=== PATIENT | female | born 1985 | race Caucasian/White ===

== ENCOUNTER 2024-05-27 23:19 | Emergency (ER) | payer MEDICAID, SELFPAY ==
[2024-05-27 23:20] VITALS: BMI 39.0
[2024-05-27 23:53] VITALS: BP 117/87; PULSE 134; RESP 18; TEMP 37.9; O2SAT 95
[2024-05-28] MEDS: ALBUTEROL/IPRATROPIUM (Duoneb) RT SOL 3 ML NEBU 6 ML INH (00:15)
[2024-05-28] MEDS: ACETAMINOPHEN 500 MG TABLET 1000 MG PO (00:15)
[2024-05-28] MEDS: OSELTAMIVIR 75 MG CAPSULE PO (00:16)
[2024-05-28] MEDS: DEXAMETHASONE SOD PHOS INJ 10 MG/ML VIAL PO (00:17)
[2024-05-28] MEDS: ONDANSETRON ODT 4 MG TABRAP PO (00:17)
[2024-05-28 00:21] VITALS: PULSE 138; RESP 20; O2SAT 98
--- NOTE | 2024-05-28 00:22 | PD.EDURI ---
Upper Respiratory Inf. RME/HPI General Chief Complaint: Flu Like Symptoms Stated Complaint: FLU LIKE SYMPTOMS X 3 DAYS Time Seen by Provider: 05/28/24 00:03 Arrival date/time: 05/27/24 23:19 38F with history of asthma presents to ED with cough for 3 days. Patient's daughter tested positive for Flu A. Limitations: no limitations Related Data Home Medications ?Medication ?Instructions ?Recorded ?Confirmed Fluticasone/Salmeterol DISKUS * 1 puff inhalation BID #0 puffs 09/06/13 07/07/19 (ADVAIR DISKUS 250/50 *) montelukast 10 mg tablet 10 mg PO HS #0 tabs 09/06/13 07/07/19 (Singulair) loratadine 10 mg tablet 10 mg PO QDAY 07/07/19 07/07/19 mometasone 50 mcg/actuation nasal 2 spray intranasal QDAY 07/07/19 07/07/19 spray (Nasonex) Previous Rx's ?Medication ?Instructions ?Recorded albuterol sulfate 90 mcg/actuation 2 puff inhalation Q6H #18 grams 03/20/18 aerosol inhaler ibuprofen 600 mg tablet 600 mg PO QID PRN fever or pain 04/20/19 #30 tabs azithromycin 250 mg tablet See Rx Instructions PO .COMPLEX #6 07/07/19 tabs methylprednisolone 4 mg tablets in 4 mg PO .as directed #21 tabs 07/07/19 a dose pack (Medrol (Stoney)) ondansetron 4 mg disintegrating 4 mg PO Q8H PRN nausea and 07/07/19 tablet vomiting #14 tabs ondansetron 4 mg disintegrating 4 mg PO Q8H PRN nausea and 05/28/24 tablet vomiting #14 tabs oseltamivir 75 mg capsule (Tamiflu) 75 mg PO BID 5 days #10 caps 05/28/24 prednisone 50 mg tablet 50 mg PO QDAY 7 days #7 tabs 05/28/24 Allergies Allergy/AdvReac Type Severity Reaction Status Date / Time codeine Allergy Intermediate Vomiting Verified 05/27/24 23:22 hydrocodone bit Allergy Intermediate Vomiting Verified 05/27/24 23:22 latex Allergy Intermediate Rash Verified 05/27/24 23:22 levofloxacin Allergy Intermediate Anaphylaxis Verified 05/27/24 23:22 Quinolones Allergy Intermediate Anaphylaxis Verified 05/27/24 23:22 Sulfa (Sulfonamide Allergy Intermediate Vomiting Verified 05/27/24 23:22 Antibiotics) Review of Systems Review of Systems Systems Reviewed: All systems reviewed, normal except as documented Constitutional Constitutional: Reports system reviewed and no additional complaints, except as documented, Denies fever(s) and Denies headache(s) ENT Ears, Nose, Mouth, and Throat: Denies disequilibrium and Denies headache(s) Cardiovascular Cardiovascular: Reports system reviewed and no additional complaints, except as documented, Denies chest pain and Denies dyspnea Respiratory Respiratory: Reports system reviewed and no additional complaints, except as documented, Reports as per HPI, Reports cough and Denies dyspnea Gastrointestinal Gastrointestinal: Reports system reviewed and no additional complaints, except as documented, Denies abdominal pain, Denies nausea and Denies vomiting Neurologic Neurologic: Reports system reviewed and no additional complaints, except as documented, Denies confusion, Denies disequilibrium and Denies headache(s) Psychiatric Psychiatric: Denies confusion Past Medical History Past Medical History CARDIAC: Negative Congestive Heart Failure RESPIRATORY: Positive Chronic Obstructive Pulmonary Disease (COPD) and Asthma GENITOURINARY: Negative Renal Disease ENDOCRINE: Negative Diabetes Mellitus Type 1 or Diabetes Mellitus Type 2 Surgical History SURGICAL: Positive Section Social History SMOKING STATUS: Never smoker ED Exam General Limitations: Present no limitations General appearance: Present alert and in no apparent distress Head Head exam: Present atraumatic Eye Eye exam: Present normal appearance, PERRL and EOMI ENT ENT exam: Present normal exam, normal oropharynx and mucous membranes moist Neck Neck exam: Present normal inspection, full ROM and trachea midline Chest Chest inspection: Present normal inspection and symmetric chest wall rise Respiratory Respiratory exam: Present wheezes (L) Cardiovascular Cardiovascular exam: Present regular rate, normal rhythm and normal heart sounds Abdominal Exam Abdominal exam: Present soft and normal bowel sounds Extremities Exam Extremities exam: Present normal inspection and full ROM Back Exam Back exam: Present normal inspection and full ROM Neurological Exam Neurological exam: Present alert, oriented X3 and CN II-XII intact Psychiatric Psychiatric exam: Present normal affect and normal mood Skin Skin exam: Present warm, dry, intact and normal color Course Quality Measures none Orders Category Date Time Status Acetaminophen Tab [Tylenol ES Tab] Med 05/28/24 00:05 Discontinued 1,000 mg PO X1 ONE Albuterol/Ipratr Rt Odette [Duoneb Rt Odette] Med 05/28/24 00:05 Discontinued 6 ml INH X1 ONE Dexamethasone Inj [Decadron Inj] Med 05/28/24 00:05 Discontinued 10 mg PO X1 ONE Ondansetron Odt [Zofran Odt] Med 05/28/24 00:09 Discontinued 4 mg PO X1 ONE Oseltamivir [Tamiflu] Med 05/28/24 00:05 Discontinued 75 mg PO X1 ONE Vital Signs Vital signs: Vital Signs Temperature 100.2 F 05/27/24 23:53 Pulse Rate 134 H 05/27/24 23:53 Respiratory Rate 18 05/27/24 23:53 Blood Pressure 117/87 H 05/27/24 23:53 Pulse Oximetry (%) 95 05/27/24 23:53 Oxygen Delivery Method Room Air 05/27/24 23:53 O2 at 95% on RA and WNLs Upper Respiratory Infection MDM Narrative MDM Narrative:: 38F with history of asthma presents to ED with cough for 3 days. Patient's daughter tested positive for Flu A. Physical exam reveals some wheezing in L Lung. Patient is afebrile, calm, and alert. Likely influenza with asthma exacerbation. Meds relieved wheezing. Will treat with Tamiflu. Patient data External records reviewed:: [facility] previous records Clinical information provided by:: patient Social determinants that could affect healthcare access:: none Patient has the following chronic illnesses:: asthma How is presenting disease/condition affected by chronic disease/condition?: exacerbated by Evaluation data The following diagnostics were reviewed and interpreted by me:: other (specify) (none) Lab and/or radiology exams considered but not ordered:: not ordered Interpretation Summary: n/a Medications / Prescriptions Medications or Prescriptions considered but not ordered:: ordered Medication administrations:: Medication Administration History Discontinued Medications Acetaminophen (Acetaminophen 500 Mg Tablet) 1,000 mg PO X1 ONE Stop: 05/28/24 00:06 Last Admin: 05/28/24 00:15 Dose: 1,000 mg Documented By: IRVING Albuterol/Ipratropium (Albuterol/Ipratropium (Duoneb) Rt Odette 3 Ml Nebu) 6 ml INH X1 ONE Stop: 05/28/24 00:06 Last Admin: 05/28/24 00:15 Dose: 6 ml Documented By: DEMETRICE Dexamethasone Sodium Phosphate (Dexamethasone Sod Phos Inj 10 Mg/Ml Vial) 10 mg PO X1 ONE Stop: 05/28/24 00:06 Last Admin: 05/28/24 00:17 Dose: 10 mg Documented By: IRVING Ondansetron HCl (Ondansetron Odt 4 Mg Tabrap) 4 mg PO X1 ONE; Protocol Stop: 05/28/24 00:10 Last Admin: 05/28/24 00:17 Dose: 4 mg Documented By: IRVING Oseltamivir Phosphate (Oseltamivir 75 Mg Capsule) 75 mg PO X1 ONE Stop: 05/28/24 00:06 Last Admin: 05/28/24 00:16 Dose: 75 mg Documented By: IRVING above Consultations Consultation(s) initiated? (list below): No Diagnosis Upper Respiratory Differential Diagnosis: upper respiratory infection, croup, otitis media, sinusitis, viral infection, bronchitis, influenza, pharyngitis and other (asthma exacerbation) Most likely diagnosis given after review of the tests above:: asthma exacerbation and influenza Admission Indicated Admission indicated?: not indicated Admission Request Was there a request for admission?: No Disposition Plan Disposition Plan: Discharge Discharge Attestation Discharge Attestation: The patient and all family members were given an opportunity to ask questions and understood the discharge instructions. Discharge instructions specifically effects, indications for sooner follow up or return to the emergency department, and the expected course of current diagnosis. Patient condition: Stable Discharge Plan Plan Patient Disposition: HOME (Self Care) Disposition Comment: Stable Prescriptions/Referrals Prescriptions/Med Rec: New prednisone 50 mg tablet 50 mg PO QDAY 7 Days Qty: 7 0RF oseltamivir [Tamiflu] 75 mg capsule 75 mg PO BID 5 Days Qty: 10 0RF ondansetron 4 mg tablet,disintegrating 4 mg PO Q8H PRN (Reason: nausea and vomiting) Qty: 14 0RF No Action albuterol sulfate 90 mcg/actuation HFA aerosol inhaler 2 puff INH Q6H Qty: 18 0RF montelukast [Singulair] 10 MG tablet 10 mg PO HS Qty: 0 Fluticasone/Salmeterol DISKUS * (ADVAIR DISKUS 250/50 *) 1 DISK/DEV DISK.W.DEV 1 puff Inhalation BID Qty: 0 mometasone [Nasonex] 50 mcg/actuation [place],Non-Aerosol 2 spray INTRANASAL QDAY loratadine 10 mg Tablet 10 mg PO QDAY azithromycin 250 mg tablet See Rx Instructions .ROUTE .COMPLEX Qty: 6 0RF Rx Instructions: take 500 mg today (day 1), then 250 mg for 4 days (days 2-5) ondansetron 4 mg tablet,disintegrating 4 mg PO Q8H PRN (Reason: nausea and vomiting) Qty: 14 0RF methylprednisolone [Medrol (Stoney)] 4 mg tablets,dose pack 4 mg PO .as directed Qty: 21 0RF ibuprofen 600 mg tablet 600 mg PO QID PRN (Reason: fever or pain) Qty: 30 0RF Referrals: Ernst Rodriguez PA-C [Primary Care Provider] - In 1 week Problem List Clinical Impression: Influenza, Asthma exacerbation Patient/Caregiver Discharge Instructions Additional Instructions: Please follow-up with PCP within 24-48 hours and return immediately if symptoms worsen. Print Language: Libyan Stand Alone Forms: Patient Portal Info Letter KLAUS/JER Supervising Physician KLAUS/JER Supervising Physician: Dr. Daniel
[2024-05-28 01:51] VITALS: BP 107/68; PULSE 130; RESP 19; TEMP 37.3; O2SAT 94
== END 2024-05-28 02:01 | disposition home or self-care (01) ==
PROVIDERS: Emergency Provider Emergency Medicine; PCP Physician Assistant
DX: J45.901 Unspecified asthma with (acute) exacerbation (principal); J11.1 Influenza due to unidentified influenza virus with other respiratory manifestations; J44.89 Other specified chronic obstructive pulmonary disease
CPT/HCPCS: 94640; 99283; A9270; J1100; Q0162

== ENCOUNTER 2024-10-08 00:15 | Emergency (ER) | payer MEDICAID, SELFPAY ==
[2024-10-08] VITALS (9 sets, daily range): BP systolic 118–185; BP diastolic 79–97; PULSE 105–145; RESP 18–24; TEMP 36.4–37; O2SAT 94–99; BMI 35.5
--- NOTE | 2024-10-08 00:46 | PD.ASTHM ---
ED Asthma RME/HPI General Chief Complaint: Asthma Stated Complaint: DIFFICULTY BREATHING Time Seen by Provider: 10/08/24 00:41 Arrival date/time: 10/08/24 00:15 39F with history of asthma presents to ED with 2 days of cough and SOB. Patient is on prednisone 10 mg daily. Patient took 25 mg for the past 2 days w/o relief. Limitations: no limitations Related Data Home Medications ?Medication ?Instructions ?Recorded ?Confirmed Fluticasone/Salmeterol DISKUS * 1 puff inhalation BID #0 puffs 09/06/13 07/07/19 (ADVAIR DISKUS 250/50 *) montelukast 10 mg tablet 10 mg PO HS #0 tabs 09/06/13 07/07/19 (Singulair) loratadine 10 mg tablet 10 mg PO QDAY 07/07/19 07/07/19 mometasone 50 mcg/actuation nasal 2 spray intranasal QDAY 07/07/19 07/07/19 spray (Nasonex) Previous Rx's ?Medication ?Instructions ?Recorded albuterol sulfate 90 mcg/actuation 2 puff inhalation Q6H #18 grams 03/20/18 aerosol inhaler ibuprofen 600 mg tablet 600 mg PO QID PRN fever or pain 04/20/19 #30 tabs azithromycin 250 mg tablet See Rx Instructions PO .COMPLEX #6 07/07/19 tabs methylprednisolone 4 mg tablets in 4 mg PO .as directed #21 tabs 07/07/19 a dose pack (Medrol (Stoney)) ondansetron 4 mg disintegrating 4 mg PO Q8H PRN nausea and 07/07/19 tablet vomiting #14 tabs ondansetron 4 mg disintegrating 4 mg PO Q8H PRN nausea and 05/28/24 tablet vomiting #14 tabs albuterol sulfate 90 mcg/actuation 2 inh inhalation Q6H PRN shortness 10/08/24 breath activated powder inhaler of breath or wheezing #1 ea azithromycin 500 mg tablet 500 mg PO QDAY 3 days #3 tabs 10/08/24 (Zithromax TRI-STONEY) prednisone 20 mg tablet 20 mg PO BID 4 days #8 tabs 10/08/24 Allergies Allergy/AdvReac Type Severity Reaction Status Date / Time codeine Allergy Intermediate Vomiting Verified 05/27/24 23:22 hydrocodone bit Allergy Intermediate Vomiting Verified 05/27/24 23:22 latex Allergy Intermediate Rash Verified 05/27/24 23:22 levofloxacin Allergy Intermediate Anaphylaxis Verified 05/27/24 23:22 Quinolones Allergy Intermediate Anaphylaxis Verified 05/27/24 23:22 Sulfa (Sulfonamide Allergy Intermediate Vomiting Verified 05/27/24 23:22 Antibiotics) Review of Systems Review of Systems Systems Reviewed: All systems reviewed, normal except as documented Constitutional Constitutional: Reports system reviewed and no additional complaints, except as documented, Denies fever(s) and Denies headache(s) ENT Ears, Nose, Mouth, and Throat: Denies disequilibrium and Denies headache(s) Cardiovascular Cardiovascular: Reports system reviewed and no additional complaints, except as documented, Denies chest pain and Reports dyspnea Respiratory Respiratory: Reports system reviewed and no additional complaints, except as documented, Reports as per HPI, Reports cough and Reports dyspnea Gastrointestinal Gastrointestinal: Reports system reviewed and no additional complaints, except as documented, Denies abdominal pain, Denies nausea and Denies vomiting Neurologic Neurologic: Reports system reviewed and no additional complaints, except as documented, Denies confusion, Denies disequilibrium and Denies headache(s) Psychiatric Psychiatric: Denies confusion Past Medical History Past Medical History CARDIAC: Negative Congestive Heart Failure RESPIRATORY: Positive Chronic Obstructive Pulmonary Disease (COPD) and Asthma GENITOURINARY: Negative Renal Disease ENDOCRINE: Negative Diabetes Mellitus Type 1 or Diabetes Mellitus Type 2 Surgical History SURGICAL: Positive Section Social History SMOKING STATUS: Never smoker ED Exam General Limitations: Present no limitations General appearance: Present alert and in no apparent distress Head Head exam: Present atraumatic Eye Eye exam: Present normal appearance, PERRL and EOMI ENT ENT exam: Present normal exam, normal oropharynx and mucous membranes moist Neck Neck exam: Present normal inspection, full ROM and trachea midline Chest Chest inspection: Present normal inspection and symmetric chest wall rise Respiratory Respiratory exam: Present wheezes Cardiovascular Cardiovascular exam: Present regular rate, normal rhythm and normal heart sounds Abdominal Exam Abdominal exam: Present soft and normal bowel sounds Extremities Exam Extremities exam: Present normal inspection and full ROM Back Exam Back exam: Present normal inspection and full ROM Neurological Exam Neurological exam: Present alert, oriented X3 and CN II-XII intact Psychiatric Psychiatric exam: Present normal affect and normal mood Skin Skin exam: Present warm, dry, intact and normal color Course Quality Measures none Orders Category Date Time Status Budesonide Rt [Pulmicort Rt Odette] Med 10/08/24 00:41 Discontinued 0.5 mg INH X1 ONE Dexamethasone Inj [Decadron Inj] Med 10/08/24 00:41 Discontinued 10 mg PO X1 ONE Ipratropium [place] Rt Odette [Atrovent Rt Odette] Med 10/08/24 00:41 Discontinued 1 mg INH X1 ONE Levalbuterol Rt [Xopenex Rt Odette] Med 10/08/24 00:41 Discontinued 5 mg INH X1 ONE Sodium Chloride Rt Odette 0.9% [NS Rt Odette 0.9%] Med 10/08/24 00:41 Active 3 ml INH PRN PRN Vital Signs Vital signs: Vital Signs Temperature 97.7 F 10/08/24 00:26 Pulse Rate 105 H 10/08/24 00:26 Respiratory Rate 24 H 10/08/24 00:26 Blood Pressure 144/88 H 10/08/24 00:26 Pulse Oximetry (%) 98 10/08/24 00:26 Oxygen Delivery Method Room Air 10/08/24 00:26 Asthma MDM Narrative MDM Narrative:: 39F with history of asthma presents to ED with 2 days of cough and SOB. Patient is on prednisone 10 mg daily. Patient took 25 mg for the past 2 days w/o relief. Physical exam reveals wheezing in lungs. Patient is afebrile, calm, and alert. Only mild improvement after 2 1 hr breathing tx and max steroids. Still has wheezing, but O2 remains >95% on RA. Care signed out to colleague pending mag and diagnostics. Patient was ultimately discharged. Patient data External records reviewed:: [facility] previous records Clinical information provided by:: patient Social determinants that could affect healthcare access:: none Patient has the following chronic illnesses:: asthma How is presenting disease/condition affected by chronic disease/condition?: exacerbated by Evaluation data The following diagnostics were reviewed and interpreted by me:: radiology exam(s) Lab and/or radiology exams considered but not ordered:: ordered Interpretation Summary: above Medications / Prescriptions Medications or Prescriptions considered but not ordered:: ordered Medication administrations:: Medication Administration History Sodium Chloride (Sodium Chloride Rt Odette 0.9% 3 Ml Nebu) 3 ml INH PRN PRN PRN Reason: SOLN Stop: 11/07/24 00:40 Discontinued Medications Budesonide (Budesonide Rt 0.5 Mg/2 Ml Nebu) 0.5 mg INH X1 ONE Stop: 10/08/24 00:42 Dexamethasone Sodium Phosphate (Dexamethasone Sod Phos Inj 10 Mg/Ml Vial) 10 mg PO X1 ONE Stop: 10/08/24 00:42 Ipratropium [place] (Ipratropium Rt 0.5 Mg/ 2.5 Ml Nebu) 1 mg INH X1 ONE Stop: 10/08/24 00:42 Levalbuterol HCl (Levalbuterol Rt 1.25 Mg/0.5 Ml Nebu) 5 mg INH X1 ONE Stop: 10/08/24 00:42 Consultations Consultation(s) initiated? (list below): No Diagnosis Differential diagnosis asthma: Acute exacerbation, Status asthmaticus, Acute asthmatic bronchitis, PE, Pneumonia, COPD exacerbation, Pulmonary edema systolic, Pulmonary edema dystolic, ARDS, Pneumothorax and Foreign body in trachea Most likely diagnosis given after review of the tests above:: status asthmaticus Admission Indicated Admission indicated?: not indicated Admission Request Was there a request for admission?: No Disposition Plan Disposition Plan: Discharge Discharge Attestation Discharge Attestation: The patient and all family members were given an opportunity to ask questions and understood the discharge instructions. Discharge instructions specifically effects, indications for sooner follow up or return to the emergency department, and the expected course of current diagnosis. Patient condition: Stable Discharge Plan Plan Patient Disposition: HOME (Self Care) Prescriptions/Referrals Prescriptions/Med Rec: New albuterol sulfate 90 mcg/actuation aerosol powdr breath activated 2 inh inhalation Q6H PRN (Reason: shortness of breath or wheezing) Qty: 1 0RF azithromycin [Zithromax TRI-STONEY] 500 mg tablet 500 mg PO QDAY 3 Days Qty: 3 0RF Rx Instructions: 500 mg orally; prednisone 20 mg tablet 20 mg PO BID 4 Days Qty: 8 0RF Taper: Prednisone Taper 20 mg DAILY for 2 Days and 0 Hour 10 mg DAILY for 2 Days and 0 Hour 5 mg DAILY for 7 Days and 0 Hour No Action albuterol sulfate 90 mcg/actuation HFA aerosol inhaler 2 puff INH Q6H Qty: 18 0RF montelukast [Singulair] 10 MG tablet 10 mg PO HS Qty: 0 Fluticasone/Salmeterol DISKUS * (ADVAIR DISKUS 250/50 *) 1 DISK/DEV DISK.W.DEV 1 puff Inhalation BID Qty: 0 mometasone [Nasonex] 50 mcg/actuation [place],Non-Aerosol 2 spray INTRANASAL QDAY loratadine 10 mg Tablet 10 mg PO QDAY azithromycin 250 mg tablet See Rx Instructions .ROUTE .COMPLEX Qty: 6 0RF Rx Instructions: take 500 mg today (day 1), then 250 mg for 4 days (days 2-5) ondansetron 4 mg tablet,disintegrating 4 mg PO Q8H PRN (Reason: nausea and vomiting) Qty: 14 0RF methylprednisolone [Medrol (Stoney)] 4 mg tablets,dose pack 4 mg PO .as directed Qty: 21 0RF ibuprofen 600 mg tablet 600 mg PO QID PRN (Reason: fever or pain) Qty: 30 0RF ondansetron 4 mg tablet,disintegrating 4 mg PO Q8H PRN (Reason: nausea and vomiting) Qty: 14 0RF Referrals: Ernst Rodriguez PA-C [Primary Care Provider] - In 1 week Problem List Clinical Impression: Asthma with status asthmaticus Patient/Caregiver Discharge Instructions Print Language: Ugandan Stand Alone Forms: Nery Award Info., Patient Portal Info Letter
--- NOTE | 2024-10-08 00:47 | XR_ITS ---
Examination: PA chest single view TECHNIQUE: Upright PA chest single view Exam date and time: October 08, 2024 0106 hours Indications coughing beginning 2 days ago. FINDINGS: Bibasilar bronchitis versus early bronchopneumonia Normal heart size Mild osteopenia IMPRESSION: Bibasilar bronchitis versus early bronchopneumonia, clinical correlation advised
[2024-10-08] MEDS: DEXAMETHASONE SOD PHOS INJ 10 MG/ML VIAL PO (00:52)
[2024-10-08] MEDS: LEVALBUTEROL RT 1.25 MG/0.5 ML NEBU 5 MG INH ×2 (00:55→04:08)
[2024-10-08] MEDS: IPRATROPIUM RT 0.5 MG/ 2.5 ML NEBU 1 MG INH (00:55)
[2024-10-08] MEDS: BUDESONIDE RT 0.5 MG/2 ML NEBU INH ×2 (00:56→04:08)
[2024-10-08] MEDS: IPRATROPIUM RT 0.5 MG/ 2.5 ML NEBU INH (04:08)
[2024-10-08] MEDS: SODIUM CHLORIDE RT SOL 0.9% 3 ML NEBU INH (04:08)
[2024-10-08] MEDS: predniSONE 20 MG TABLET 40 MG PO (04:17)
[2024-10-08] MEDS: Magnesium Sulfate 2 GM Ivpb 2 GM/50 ML BAG IV (05:37)
[2024-10-08 05:49] LABS: Lactate (Lactic Acid) 2.8 mMol/L (0.4-2.0)
[2024-10-08 05:53] LABS: Basophils # (Auto) 0.1 Thou/mm3 (0.0-0.2); Basophils % (Auto) 1 % (0-2.5); Eosinophils % (Auto) 0 % (0-10); Hematocrit 39.1 % (36.0-46.0); Hemoglobin 13.6 g/dL (12.0-16.0); Immature Granulocytes % (Auto) 0 % (0-0); Immature Granulocytes Auto 0.03 Thou/mm3 (0.00-0.00); Lymphocytes # (Auto) 0.8 Thou/mm3 (1.0-4.8); Lymphocytes % (Auto) 7 % (10-50); Mean Corpuscular HGB Conc 34.8 g/dl (31.0-37.0); Mean Corpuscular Hemoglobin 29.9 pg (25.0-35.0); Mean Corpuscular Volume 86 fL (80-100); Monocytes # (Auto) 0.9 Thou/mm3 (0.0-0.8); Monocytes % (Auto) 8 % (0-12); Neutrophils % (Auto) 83 % (37-80); Nucleated Red Blood Cell % 0 /100 WBC (0); Platelet Count 222 Thou/mm3 (140-440); RDW Standard Deviation 39.2 fL (36.4-46.3); Red Blood Count 4.55 Miln/mm3 (4.00-5.20); White Blood Count 10.8 Thou/mm3 (3.6-11.0)
--- NOTE | 2024-10-08 06:28 | XR_ITS ---
Examination: CTA chest with intravenous contrast 2-D reconstructions 3-D reconstructions, vascular Date and time of exam: October 08, 2024 0844 hours INDICATIONS: Shortness of breath chest pain onset today CTDI: vol (mGy) 32 DLP: (mGycm) 438 Technique: Multiple axial sections of the thorax have been obtained. 3 mm slice thickness, from below the hemidiaphragms to above the apices of the lungs. Mediastinal and lung density settings have been obtained. 2-D sagittal and coronal reconstructions. 3-D angiographic renderings, 3-D volume renderings, 3D post processing, vascular maximum intensity projections obtained. Contrast administered is 100 cc Isovue-370. Low dose protocols were performed. One or more of the following dose reduction techniques were used; automated exposure control, adjustment of the mA and/or KV according to patient size, use of iterative reconstruction technique. Findings: No thoracic aortic aneurysm dilatation No pulmonary artery filling defects Mild vascular congestion. No lobar pneumonia or pulmonary edema No visualized liver splenic lesion No gallstones no pancreatic mass IMPRESSION: Negative for pulmonary artery emboli No pneumonia or pulmonary edema or pleural disease
[2024-10-08 06:40] LABS: Alanine Aminotransferase 26 U/L (10-49); Albumin, Serum 4.4 gm/dL (3.5-5.0); Albumin/Globulin Ratio 1.8 (1.2-2.2); Alkaline Phosphatase 91 U/L (46-116); Anion Gap 13 (7-16); Aspartate Amino Transferase 17 U/L (0-34); BUN/Creatinine Ratio 20 Ratio (12-20); Bilirubin,Total 0.2 mg/dL (0.3-1.2); Blood Urea Nitrogen 20 mg/dL (9-23); Calcium 8.5 mg/dL (8.3-10.6); Calcium (Corrected) 8.5 mg/dL (8.5-10.1); Carbon Dioxide 20.7 mMol/L (20.0-31.0); Chloride 106 mMol/L (98-107); Estimated Creatinine Clearance 89.1 mL/min (>60); Globulin 2.5 gm/dL (2.3-3.5); Glucose 163 mg/dL (74-106); Osmolality,Calculated 286 (275-295); Potassium 3.4 mMol/L (3.4-5.1); Procalcitonin 0.05 ng/ml (0.0-0.49); Sodium 140 mMol/L (136-145); Total Protein 6.9 gm/dL (5.7-8.2); eGFR > 60 See Note
--- NOTE | 2024-10-08 06:53 | PC.NURSE ---
per md no sepsis orders at this time
--- NOTE | 2024-10-08 07:45 | PC.NURSE ---
Patient resting comfortably in bed, at bedside. POC updated. Patient denies SOB at this time.
[2024-10-08 08:19] LABS: HCG Qualitative,Urine Negative
--- NOTE | 2024-10-08 08:22 | PD.ASTHM ---
ED Asthma RME/HPI General Chief Complaint: Asthma Stated Complaint: DIFFICULTY BREATHING Time Seen by Provider: 10/08/24 00:41 Arrival date/time: 10/08/24 00:15 Limitations: no limitations RME / HPI RME / HPI Narrative: 39 year old female with a history of asthma, currently managed with Prednisone 10 mg daily, Advair 500/50, Singulair, and a nasal spray, presents to the ED with shortness of breath and cough. She reports the symptoms are similar to prior asthma exacerbations. She ran out of her rescue inhaler two days ago and has been unable to manage symptoms at home. She denies fever, chills, night sweats, chest pain, or other associated symptoms. She is followed by the [facility] and her PCP, KLAUS Rodriguez. Related Data Home Medications ?Medication ?Instructions ?Recorded ?Confirmed Fluticasone/Salmeterol DISKUS * 1 puff inhalation BID #0 puffs 09/06/13 07/07/19 (ADVAIR DISKUS 250/50 *) montelukast 10 mg tablet 10 mg PO HS #0 tabs 09/06/13 07/07/19 (Singulair) loratadine 10 mg tablet 10 mg PO QDAY 07/07/19 07/07/19 mometasone 50 mcg/actuation nasal 2 spray intranasal QDAY 07/07/19 07/07/19 spray (Nasonex) Previous Rx's ?Medication ?Instructions ?Recorded albuterol sulfate 90 mcg/actuation 2 puff inhalation Q6H #18 grams 03/20/18 aerosol inhaler ibuprofen 600 mg tablet 600 mg PO QID PRN fever or pain 04/20/19 #30 tabs azithromycin 250 mg tablet See Rx Instructions PO .COMPLEX #6 07/07/19 tabs methylprednisolone 4 mg tablets in 4 mg PO .as directed #21 tabs 07/07/19 a dose pack (Medrol (Stoney)) ondansetron 4 mg disintegrating 4 mg PO Q8H PRN nausea and 07/07/19 tablet vomiting #14 tabs ondansetron 4 mg disintegrating 4 mg PO Q8H PRN nausea and 05/28/24 tablet vomiting #14 tabs albuterol sulfate 90 mcg/actuation 2 inh inhalation Q6H PRN shortness 10/08/24 breath activated powder inhaler of breath or wheezing #1 ea azithromycin 500 mg tablet 500 mg PO QDAY 3 days #3 tabs 10/08/24 (Zithromax TRI-STONEY) prednisone 20 mg tablet 20 mg PO BID 4 days #8 tabs 10/08/24 Allergies Allergy/AdvReac Type Severity Reaction Status Date / Time codeine Allergy Intermediate Vomiting Verified 05/27/24 23:22 hydrocodone bit Allergy Intermediate Vomiting Verified 05/27/24 23:22 latex Allergy Intermediate Rash Verified 05/27/24 23:22 levofloxacin Allergy Intermediate Anaphylaxis Verified 05/27/24 23:22 Quinolones Allergy Intermediate Anaphylaxis Verified 05/27/24 23:22 Sulfa (Sulfonamide Allergy Intermediate Vomiting Verified 05/27/24 23:22 Antibiotics) Review of Systems Review of Systems Narrative Review of Systems: GEN: No fever, no chills, no weight loss EYES: No discharge, no visual changes, no pain HEENT: No ear pain, no congestion, no sore throat PULM: +shortness of breath, +cough CV: No chest pain, no palpitations GI: No nausea, no vomiting, no diarrhea, no pain, no constipation : No frequency, no urgency, no dysuria MUSC/SKEL: No joint pain, no back pain SKIN: No rash NEURO: No weakness, no headache Past Medical History Past Medical History CARDIAC: Negative Cardiac Disorders or Congestive Heart Failure RESPIRATORY: Positive Asthma; Negative Chronic Obstructive Pulmonary Disease (COPD) GENITOURINARY: Negative Renal Disease ENDOCRINE: Negative Diabetes Mellitus Type 1 or Diabetes Mellitus Type 2 HEMATOLOGIC: Negative Sickle Cell Disease Surgical History SURGICAL: Positive Section Social History SMOKING STATUS: Never smoker ED Exam General Limitations: Present no limitations General appearance: Present alert Head Head exam: Present atraumatic Eye Eye exam: Present normal appearance, PERRL and EOMI ENT ENT exam: Present normal exam, normal oropharynx and mucous membranes moist Neck Neck exam: Present normal inspection, full ROM and trachea midline Chest Chest inspection: Present normal inspection and symmetric chest wall rise Respiratory Respiratory exam: Present other (Poor air movement, expiratory and inspiratory wheezing. ) Cardiovascular Cardiovascular exam: Present regular rate, normal rhythm and normal heart sounds Abdominal Exam Abdominal exam: Present soft and normal bowel sounds Extremities Exam Extremities exam: Present normal inspection and full ROM Back Exam Back exam: Present normal inspection and full ROM Neurological Exam Neurological exam: Present alert, oriented X3 and CN II-XII intact Psychiatric Psychiatric exam: Present normal affect and normal mood Skin Skin exam: Present warm, dry, intact and normal color Course Course Course Narrative: chest xray ordered to help determine etiology of shortness of breath. Quality Measures Current suspected stage: sepsis Possible source: pulmonary Blood cultures ordered: completed in ED Antibiotic ordered: Yes Pertinent labs: 10/08/24 05:41 Lactic Acid 2.8 H mMol/L (0.4-2.0) Procalcitonin 0.05 ng/ml (0.0-0.49) sepsis Orders Category Date Time Status CT Screening NOW Care 10/08/24 06:28 Active Insert IV NOW Care 10/08/24 05:[address] angio chest Stat Exams 10/08/24 06:28 Ordered XR chest 1V portable Stat Exams 10/08/24 00:47 Taken CBC Stat Lab 10/08/24 05:41 Completed CMP [Comprehensive Metabolic Panel] Stat Lab 10/08/24 05:41 Completed HCG Qualitative,Urine Stat Lab 10/08/24 07:42 Completed Lactate (Lactic Acid) Stat Lab 10/08/24 05:41 Results Procalcitonin Stat Lab 10/08/24 05:41 Completed Azithromycin Inj [Zithromax Inj] 500 mg Med 10/08/24 07:46 Active Sodium Chloride 0.9% 250 ml [Ns] 250 ml IV X1 Budesonide Rt [Pulmicort Rt Odette] Med 10/08/24 00:41 Discontinued 0.5 mg INH X1 ONE Budesonide Rt [Pulmicort Rt [place]] Med 10/08/24 03:56 Discontinued 0.5 mg INH X1 ONE Dexamethasone Inj [Decadron Inj] Med 10/08/24 00:41 Discontinued 10 mg PO X1 ONE Ipratropium [place] Rt Odette [Atrovent Rt Odette] Med 10/08/24 03:56 Discontinued 0.5 mg INH X1 ONE Ipratropium [place] Rt [place]ette [Atrovent Rt Odette] Med 10/08/24 00:41 Discontinued 1 mg INH X1 ONE Levalbuterol Rt [Xopenex Rt [place]] Med 10/08/24 00:41 Discontinued 5 mg INH X1 ONE Levalbuterol Rt [Xopenex Rt [place]] Med 10/08/24 03:56 Discontinued 5 mg INH X1 ONE Magnesium Sulfate 2 GM Ivpb [Magnesium Sulfate Ivpb] Med 10/08/24 05:14 Discontinued 2 gm in 50 ml IV X1 Sodium Chloride Rt [place] 0.9% [NS Rt [place]ette 0.9%] Med 10/08/24 00:41 Discontinued 3 ml INH PRN PRN Sodium Chloride Rt [place] 0.9% [NS Rt [place] 0.9%] Med 10/08/24 03:56 Active 3 ml INH PRN PRN predniSONE Med 10/08/24 05:00 Discontinued 40 mg PO X1 ONE Vital Signs Vital signs: Vital Signs Temperature 97.7 F 10/08/24 00:26 Pulse Rate 105 H 10/08/24 00:26 Respiratory Rate 24 H 10/08/24 00:26 Blood Pressure 144/88 H 10/08/24 00:26 Pulse Oximetry (%) 98 10/08/24 00:26 Oxygen Delivery Method Room Air 10/08/24 00:26 Asthma MDM Narrative MDM Narrative:: Nuria Lawrence am scribing for and in the presence of Dr. Figueredo. 0624: Sepsis alert was initiated. Orders made at this time are congruent with ED Adult Sepsis order set. Plan to order CT angio chest to help rule out interstitial lung disease and repeat nebulizer treatment. 39 year old female with history of asthma presented to the ED for shortness of breath. Reported running out of her inhaler 2 days ago. Differential diagnosis include severe asthma, bronchitis, atypical pneumonia. 1000: On reassessment, patient reports feeling improved. We reviewed all the results, analysis, and treatment plans. Patient is amenable to discharge. Strict return precautions were outlined. Patients labs show no leukocytosis. Patient will be sent home with diagnosis of asthma. Plan for her to continue steroids and I will prescribe antibiotics and inhaler. Patient data External records reviewed:: [facility] previous records (I reviewed ED visit on 05/28/2024 for asthma exacerbation. ) Clinical information provided by:: patient and spouse ( adds to hpi) Social determinants that could affect healthcare access:: none Patient has the following chronic illnesses:: Asthma How is presenting disease/condition affected by chronic disease/condition?: exacerbated by Evaluation data The following diagnostics were reviewed and interpreted by me:: lab results and radiology exam(s) Lab and/or radiology exams considered but not ordered:: None Interpretation Summary: Ordering Physician: Broderick Moon PA-C Date of Service: 10/08/24 Procedure(s): XR chest 1V portable Accession Number(s): [id number] cc: Ernst Rodriguez PA-C; Jonnie Tee MD; Broderick Moon PA-C~ Examination: PA chest single view TECHNIQUE: Upright PA chest single view Exam date and time: October 08, 2024 0106 hours Indications coughing beginning 2 days ago. FINDINGS: Bibasilar bronchitis versus early bronchopneumonia Normal heart size Mild osteopenia IMPRESSION: Bibasilar bronchitis versus early bronchopneumonia, clinical correlation advised Dictated By: Jonnie Tee MD Signed By: <Electronically signed by Jonnie Tee MD in OV> 10/08/24 0940 Ordering Physician: Opal Figueredo MD Date of Service: 10/08/24 Procedure(s): CT angio chest Accession Number(s): [id number] cc: Opal Figueredo MD; Ernst Rodriguez PA-C; Jonnie Tee MD~ Examination: CTA chest with intravenous contrast 2-D reconstructions 3-D reconstructions, vascular Date and time of exam: October 08, 2024 0844 hours INDICATIONS: Shortness of breath chest pain onset today CTDI: vol (mGy) 32 DLP: (mGycm) 438 Technique: Multiple axial sections of the thorax have been obtained. 3 mm slice thickness, from below the hemidiaphragms to above the apices of the lungs. Mediastinal and lung density settings have been obtained. 2-D sagittal and coronal reconstructions. 3-D angiographic renderings, 3-D volume renderings, 3D post processing, vascular maximum intensity projections obtained. Contrast administered is 100 cc Isovue-370. Low dose protocols were performed. One or more of the following dose reduction techniques were used; automated exposure control, adjustment of the mA and/or KV according to patient size, use of iterative reconstruction technique. Findings: No thoracic aortic aneurysm dilatation No pulmonary artery filling defects Mild vascular congestion. No lobar pneumonia or pulmonary edema No visualized liver splenic lesion No gallstones no pancreatic mass IMPRESSION: Negative for pulmonary artery emboli No pneumonia or pulmonary edema or pleural disease Dictated By: Jonnie Tee MD Signed By: <Electronically signed by Jonnie Tee MD in OV> 10/08/24 0921 Medications / Prescriptions Medications or Prescriptions considered but not ordered:: None Medication administrations:: Medication Administration History Azithromycin 500 mg/ Sodium (Chloride) 250 mls @ 250 mls/hr IV X1 ONE Stop: 10/08/24 08:45 Sodium Chloride (Sodium Chloride Rt Odette 0.9% 3 Ml Nebu) 3 ml INH PRN PRN PRN Reason: SOLN Stop: 11/07/24 03:55 Discontinued Medications Budesonide (Budesonide Rt 0.5 Mg/2 Ml Nebu) 0.5 mg INH X1 ONE Stop: 10/08/24 00:42 Last Admin: 10/08/24 00:56 Dose: 0.5 mg Documented By: NE Budesonide (Budesonide Rt 0.5 Mg/2 Ml Nebu) 0.5 mg INH X1 ONE Stop: 10/08/24 03:57 Last Admin: 10/08/24 04:08 Dose: 0.5 mg Documented By: NE Dexamethasone Sodium Phosphate (Dexamethasone Sod Phos Inj 10 Mg/Ml Vial) 10 mg PO X1 ONE Stop: 10/08/24 00:42 Last Admin: 10/08/24 00:52 Dose: 10 mg Documented By: KF Magnesium Sulfate (Magnesium Sulfate Ivpb) 2 gm in 50 mls @ 150 mls/hr IV X1 ONE Stop: 10/08/24 05:33 Last Infusion: 10/08/24 05:57 Dose: Infused Documented By: Admin: 10/08/24 05:37 Dose: 150 mls/hr Documented By: EF Ipratropium [place] (Ipratropium Rt 0.5 Mg/ 2.5 Ml Nebu) 1 mg INH X1 ONE Stop: 10/08/24 00:42 Last Admin: 10/08/24 00:55 Dose: 1 mg Documented By: NE Ipratropium [place] (Ipratropium Rt 0.5 Mg/ 2.5 Ml Nebu) 0.5 mg INH X1 ONE Stop: 10/08/24 03:57 Last Admin: 10/08/24 04:08 Dose: 0.5 mg Documented By: NE Levalbuterol HCl (Levalbuterol Rt 1.25 Mg/0.5 Ml Nebu) 5 mg INH X1 ONE Stop: 10/08/24 00:42 Last Admin: 10/08/24 00:55 Dose: 5 mg Documented By: NE Levalbuterol HCl (Levalbuterol Rt 1.25 Mg/0.5 Ml Nebu) 5 mg INH X1 ONE Stop: 10/08/24 03:57 Last Admin: 10/08/24 04:08 Dose: 5 mg Documented By: NE Prednisone (Prednisone 20 Mg Tablet) 40 mg PO X1 ONE Stop: 10/08/24 05:01 Last Admin: 10/08/24 04:17 Dose: 40 mg Documented By: MELLISA Sodium Chloride (Sodium Chloride Rt Od[place] 0.9% 3 Ml Nebu) 3 ml INH PRN PRN PRN Reason: SOLN Stop: 11/07/24 00:40 Last Admin: 10/08/24 04:08 Dose: 3 ml Documented By: DAYA Consultations Consultation(s) initiated? (list below): No Diagnosis Differential diagnosis asthma: Acute exacerbation, Status asthmaticus, Acute asthmatic bronchitis, Pneumonia and ARDS Most likely diagnosis given after review of the tests above:: Asthma Admission Indicated Admission indicated?: not indicated Admission Request Was there a request for admission?: No Disposition Plan Disposition Plan: Discharge Discharge Attestation Discharge Attestation: The patient and all family members were given an opportunity to ask questions and understood the discharge instructions. Discharge instructions specifically effects, indications for sooner follow up or return to the emergency department, and the expected course of current diagnosis. Patient condition: Stable Discharge Plan Plan Patient Disposition: HOME (Self Care) Prescriptions/Referrals Prescriptions/Med Rec: New albuterol sulfate 90 mcg/actuation aerosol powdr breath activated 2 inh inhalation Q6H PRN (Reason: shortness of breath or wheezing) Qty: 1 0RF azithromycin [Zithromax TRI-STONEY] 500 mg tablet 500 mg PO QDAY 3 Days Qty: 3 0RF Rx Instructions: 500 mg orally; prednisone 20 mg tablet 20 mg PO BID 4 Days Qty: 8 0RF Taper: Prednisone Taper 20 mg DAILY for 2 Days and 0 Hour 10 mg DAILY for 2 Days and 0 Hour 5 mg DAILY for 7 Days and 0 Hour No Action albuterol sulfate 90 mcg/actuation HFA aerosol inhaler 2 puff INH Q6H Qty: 18 0RF montelukast [Singulair] 10 MG tablet 10 mg PO HS Qty: 0 Fluticasone/Salmeterol DISKUS * (ADVAIR DISKUS 250/50 *) 1 DISK/DEV DISK.W.DEV 1 puff Inhalation BID Qty: 0 mometasone [Nasonex] 50 mcg/actuation [place],Non-Aerosol 2 spray INTRANASAL QDAY loratadine 10 mg Tablet 10 mg PO QDAY azithromycin 250 mg tablet See Rx Instructions .ROUTE .COMPLEX Qty: 6 0RF Rx Instructions: take 500 mg today (day 1), then 250 mg for 4 days (days 2-5) ondansetron 4 mg tablet,disintegrating 4 mg PO Q8H PRN (Reason: nausea and vomiting) Qty: 14 0RF methylprednisolone [Medrol (Stoney)] 4 mg tablets,dose pack 4 mg PO .as directed Qty: 21 0RF ibuprofen 600 mg tablet 600 mg PO QID PRN (Reason: fever or pain) Qty: 30 0RF ondansetron 4 mg tablet,disintegrating 4 mg PO Q8H PRN (Reason: nausea and vomiting) Qty: 14 0RF Referrals: Ernst Rodriguez PA-C [Primary Care Provider] - In 1 week Problem List Clinical Impression: Asthma with status asthmaticus Patient/Caregiver Discharge Instructions Print Language: [place]an Stand Alone Forms: Nery Award Info., Patient Portal Info Letter
[2024-10-08 08:47] LABS: Reflex Lactate? Y
[2024-10-08] MEDS: AZITHROMYCIN INJ 500 MG in SODIUM CHLORIDE 0.9% 250 ML 250 ML 250 MG IV (09:12)
[2024-10-08] MEDS: ONDANSETRON ODT 4 MG TABRAP PO (10:40)
== END 2024-10-08 11:20 | disposition home or self-care (01) ==
PROVIDERS: Physician Assistant; Emergency Provider Emergency Medicine; PCP Physician Assistant
DX: J45.902 Unspecified asthma with status asthmaticus (principal)
CPT/HCPCS: 36415; 71045; 71275; 80053; 81025; 83605; 84145; 85025; 94644; 96365; 96367; 99285; A4649; J0456; J1100; J3475; J7050; J7512; Q0162; Q9967